=== PATIENT | female | born 1990 | race Caucasian/White ===

== ENCOUNTER → 2021-04-29 | Outpatient (CLI) | payer OTHER ==
[~2021-04-29] MED LIST: COLACE 100MG C100 MG PO; HYDROCODON-ACE1 EAC6 PO; IBUPROFEN600 MG PO; PRENATAL VITAM1 EAC8 PO; TRANDATE 100 M100 MG PO
[2021-04-29 13:45] LABS: HEMOGLOBIN 12.1 gm/dl (12.3-15.3); RED BLOOD COUNT 3.85 M/UL (4.00-5.10)
== END ==
LOC: GENOP 11:39
PROVIDERS: Obstetrics & Gynecology
DX: Z01.812 Encounter for preprocedural laboratory examination (principal)
CPT/HCPCS: 81001; 85025

== ENCOUNTER 2021-05-01 05:32 | Inpatient (IN) | payer OTHER ==
[~2021-05-01] VITALS: Ht 177.8 cm; Wt 134.3 kg
[2021-05-01] MEDS ORDERED: PRENATAL VITAM1 EAC8 PO (06:31)
[2021-05-01] MEDS ORDERED: TRANDATE 100 M100 MG PO (06:31)
[2021-05-01] MEDS ORDERED: IBUPROFEN600 MG PO (09:06)
[2021-05-01] MEDS ORDERED: COLACE 100MG C100 MG PO (09:06)
[2021-05-01] MEDS ORDERED: HYDROCODON-ACE1 EAC6 PO (09:06)
[2021-05-02 07:07] LABS: HEMOGLOBIN 12.4 gm/dl (12.3-15.3)
== END 2021-05-03 16:10 | disposition home or self-care (01) | DRG 788 ==
LOC: OB 05:32
PROVIDERS: ADMIT Obstetrics & Gynecology
PROC: 10D00Z1 Extraction of Products of Conception, Low, Open Approach (ICD-10-PCS; principal; 2021-05-01 07:30)
DX: O34.211 Maternal care for low transverse scar from previous cesarean delivery (principal); Z3A.36 36 weeks gestation of pregnancy; O30.043 Twin pregnancy, dichorionic/diamniotic, third trimester; Z37.2 Twins, both liveborn; Z90.49 Acquired absence of other specified parts of digestive tract; O99.344 Other mental disorders complicating childbirth; F41.9 Anxiety disorder, unspecified; F32.9 Major depressive disorder, single episode, unspecified; O11.4 Pre-existing hypertension with pre-eclampsia, complicating childbirth
CPT/HCPCS: 81001; 82800; 85014; 85018; 85025; 86900; 86901; 90715; C9113; J0690; J1650; J2274; J2405; J2550; J2590; J3010; J7120; U0003